=== PATIENT | male | born 1965 | race African-American/Black ===

== ENCOUNTER 2017-02-15 04:02 | Emergency (ER) | payer SELFPAY ==
[2017-02-15] MEDS ORDERED: HYDROcodone/Acetaminophen 10/325 mg Tablet ONE (04:11)
[2017-02-15 04:29] LABS: #Basophils 0.1 thou/uL (0.0-0.2); #Eosinphils 0.2 thou/uL (0.0-0.7); #Lymphocytes 2.6 thou/uL (1.20-3.40); #Monocytes 0.5 thou/uL (0.11-0.59); #Neutrophils 4.5 thou/uL (1.40-6.50); %Basophils 1.6 % (0.0-1.0); %Eosinophils 2.4 % (0.0-10.0); %Lymphocytes 32.9 % (21.0-51.0); %Monocytes 6.8 % (0.0-10.0); %Neutrophils 56.3 % (42.0-75.0); Hemoglobin 15.7 g/dL (14.0-18.0); Mean Corpuscular HGB CONC 32.7 g/dL (32.0-36.0); Mean Corpuscular Hemoglobin 26.1 pg (27.0-31.0); Mean Corpuscular Volume 79.7 fl (80.0-94.0); Mean Platelet Volume 9.4 fL (7.4-10.4); Platelet Count 148 thou/uL (130-400); Red Blood Cell (RBC) Count 6.03 mill/uL (4.70-6.10)
[2017-02-15 04:43] LABS: Bilirubin Negative (Negative); Blood, Urine Negative (Negative); Clarity Slightly Cloudy (Clear); Glucose, Urine (Dipstick) Negative (Negative); Leukocyte Negative (Negative); Nitrite Negative (Negative); Protein, Urine (Dipstick) Negative (Neg-Trace); Specific Gravity, Urine 1.025 (1.005-1.030); Urobilinogen 0.2 mg/dL (0.2-1.0)
[2017-02-15 04:45] LABS: AST (SGOT) 26 U/L (5-34); Anion Gap 14 mmol/L (10-20); BUN (Urea Nitrogen) 19 mg/dL (8.4-25.7); Bilirubin, Total 0.4 mg/dL (0.2-1.2); Calc. Creatinine Clearance 0 mL/min (70-130); Carbon Dioxide 19 mmol/L (22-29); Chloride 112 mmol/L (98-107); Estimated GFR-MDRD Greater than 90; Glucose 113 mg/dL (70-105); Potassium 4.3 mmol/L (3.5-5.1); Protein, Total 7.5 g/dL (6.0-8.3); Sodium 141 mmol/L (136-145)
[2017-02-15 04:46] LABS: ALT (SGPT) 26 U/L (8-55); Alkaline Phosphatase 66 U/L (40-150); Calcium 8.9 mg/dL (7.8-10.44); Globulin 3.5 g/dL (2.4-3.5)
--- NOTE | 2017-02-15 07:19 | CT ---
PRELIMINARY REPORT/[facility]/EMERGENCY AFTER HOURS PROCEDURE: EXAM: CT Lumbar Spine Without Intravenous Contrast CLINICAL HISTORY: 51 years old, male; Pain; Sciatica; Left; Patient HX: Back pain and numbness for three days HX of sc iatica TECHNIQUE: Axial computed tomography images of the lumbar spine without intravenous contrast. This CT exam was performed using one or more of the following dose reduction techniques: automated exposure control, adjustment of the mA and/or kV according to patient size, and/or use of iterative reconstruction kelby hnique. Coronal and sagittal reformatted images were created and reviewed. EXAM DATE/TIME: Exam ordered 02/15/2017 4:24 AM COMPARISON: No relevant prior studies available. FINDINGS: Vertebrae: Unremarkable. No acute fracture. Discs/spinal canal/neural foramina: L5-S1 disc bulge with bilateral L5-S1 neural foramina narrowing. Nerve root impingement not excluded. Soft tissues: Unremarkable. Adrenals: Incidental left adrenal adenoma. IMPRESSION: L5-S1 disc bulge with bilateral L5-S1 neural foramina narrowing. Nerve root impingement not excluded . Thank you for allowing us to participate in the care of your patient. Dictated and Authenticated by: Facundo Louise MD 02/15/2017 4:51 AM Central Time ([place] \T\ [place]) FINAL REPORT CT LUMBAR SPINE 02/15/2017 HISTORY: A spiral CT of the lumbar spine was performed for evaluation of persisting back pain and numbness. There is a prior history of sciatica. TECHNIQUE: Axial slices were acquired without IV contrast. Coronal and sagittal reconstructions were done. FINDINGS: No fracture or dislocation is seen. There is a broad-based concentric bulge of the L5-S1 disk. Thi s generalized bulge does compromise the neural foramina bilaterally somewhat. I cannot exclude neur al impingement. At L3-L4 and at L4-L5, there is a lesser concentric bulge that is less likely to be causing any impingement. The foramina are patent elsewhere. The prevertebral soft tissues are unr emarkable. An incidental finding is prominent thickening of the left adrenal gland, with an area in it that has slightly negative to water density CT numbers. An adenoma is probable, though it is di fficult to measure a discrete size. IMPRESSION: Disk bulges as noted, particularly at L5-S1. While concentric, it is prominent enough that it could cause slight neural encroachment and impingement. Report in agreement with preliminary reading by [facility]. POS: HOME
== END 2017-02-15 08:15 | disposition home or self-care (01) ==
LOC: BURERS 04:02
DX: M54.42 Lumbago with sciatica, left side (principal); I10 Essential (primary) hypertension; Z87.891 Personal history of nicotine dependence
CPT/HCPCS: 72131; 80053; 81003; 85025

== ENCOUNTER 2018-08-09 10:22 | Emergency (ER) | payer SELFPAY ==
[2018-08-09 11:04] LABS: ALT (SGPT) 45 U/L (8-55); AST (SGOT) 32 U/L (5-34); Albumin 4.2 g/dL (3.5-5.0); Alkaline Phosphatase 91 U/L (40-150); Anion Gap 23 mmol/L (10-20); BUN (Urea Nitrogen) 14 mg/dL (8.4-25.7); Bilirubin, Total 0.6 mg/dL (0.2-1.2); Calc. Creatinine Clearance 0 mL/min (70-130); Calcium 9.7 mg/dL (7.8-10.44); Carbon Dioxide 17 mmol/L (22-29); Chloride 99 mmol/L (98-107); Estimated GFR-MDRD 84; Globulin 3.6 g/dL (2.4-3.5); Glucose 468 mg/dL (70-105); Potassium 3.9 mmol/L (3.5-5.1); Protein, Total 7.8 g/dL (6.0-8.3); Sodium 135 mmol/L (136-145)
[2018-08-09 11:06] LABS: #Basophils 0.1 thou/uL (0.0-0.2); #Eosinphils 0.1 thou/uL (0.0-0.7); #Lymphocytes 2.1 thou/uL (1.20-3.40); #Monocytes 0.6 thou/uL (0.11-0.59); #Neutrophils 6.5 thou/uL (1.40-6.50); %Eosinophils 0.6 % (0.0-10.0); %Lymphocytes 22.2 % (21.0-51.0); %Monocytes 6.9 % (0.0-10.0); %Neutrophils 69.3 % (42.0-75.0); Hemoglobin 15.3 g/dL (14.0-18.0); Mean Corpuscular HGB CONC 32.2 g/dL (32.0-36.0); Mean Corpuscular Hemoglobin 24.8 pg (27.0-31.0); Mean Corpuscular Volume 77.1 fL (78.0-98.0); Mean Platelet Volume 11.6 fL (7.4-10.4); Platelet Count 163 thou/uL (130-400); RBC Distribution Width 13.1 % (11.5-14.5); Red Blood Cell (RBC) Count 6.16 mill/uL (4.70-6.10); White Blood Cell (WBC) Count 9.3 thou/uL (4.8-10.8)
[2018-08-09 11:09] LABS: CKMB 1.3 ng/mL (0-6.6); Troponin I Less than 0.010 ng/mL (< 0.028)
[2018-08-09 11:35] LABS: Base Excess-Venous -4.6 mmol/L (0 (+/- 2.5)); Bicarbonate (HCO3v) 20.7 mmol/L (1.0-85.0); CO2 Tension (PvCO2) 38.5 mmHg (41.0-51.0); Calcium, Ionized 1.13 mmol/L (1.12-1.32); Hemoglobin - Calc 17.2 g/dL (12.0-18.0); O2 Tension (PvO2) 53.4 mmHg (35.0-45.0); T. Carbon Dioxide 21.9 mmol/L (1.0-85.0); pH (Venous) 7.339 (7.35-7.45); vO2 Saturation-calc 85.4 % (94-98)
[2018-08-09 11:38] LABS: Bilirubin Negative (Negative); Blood, Urine Trace (Negative); Clarity Clear (Clear); Glucose, Urine (Dipstick) 500 mg/dL (Negative); Leukocyte Negative (Negative); Nitrite Negative (Negative); Protein, Urine (Dipstick) Negative (Neg-Trace); Urobilinogen 0.2 mg/dL (0.2-1.0)
[2018-08-09] MEDS ORDERED: Insulin Regular 300 UNITS/3 ML VIAL ONE (11:45)
[2018-08-09 11:47] LABS: Bacteria/HPF Rare-Few HPF (None Seen); RBC/HPF 0-3 HPF (0-3); Squamous Epithelial 0-3 HPF (0-3); WBC/HPF 0-3 HPF (0-3)
[2018-08-09 17:39] LABS: Hemoglobin A1c 10.9 % (4.0-6.0)
--- NOTE | 2018-08-09 20:30 | RAD ---
PORTABLE CHEST 08/09/18 An AP portable film a t 1015 shows a normal sized heart and clear lungs. No major infiltrate or effus ion was see. There is no vascular congestion or edema. The mediastinum appears normal. Some mild dege nerative changes are seen in the right AC joint. IMPRESSION: No acute thoracic findings. POS: HOME
== END 2018-08-09 12:44 | disposition short-term general hospital (02) ==
LOC: BURERS 10:22
DX: E11.10 Type 2 diabetes mellitus with ketoacidosis without coma (principal); I10 Essential (primary) hypertension; F17.210 Nicotine dependence, cigarettes, uncomplicated
CPT/HCPCS: 36415; 36416; 71045; 80053; 81003; 81015; 82330; 82553; 82803; 83036; 83880; 84484; 85025; 93005; 96374; 96376; J1815